=== PATIENT | female | born 1980 | race Caucasian/White ===

== ENCOUNTER 2025-02-01 10:16 | Emergency (ER) | payer BC, SELFPAY ==
[2025-02-01 10:40] VITALS: BP 138/92; PULSE 84; RESP 18; TEMP 36.9; O2SAT 99; BMI 32.9
[2025-02-01] MEDS: KETOROLAC INJ 30 MG/ML VIAL IM (11:33)
--- NOTE | 2025-02-01 12:00 | PD.EDHA ---
ED Headache RME/HPI General Chief Complaint: Headache Stated Complaint: KINSEY X 5 days, nausea Time Seen by Provider: 02/01/25 10:51 Arrival date/time: 02/01/25 10:16 Limitations: no limitations RME / HPI RME / HPI Narrative: 44-year-old patient with history of premenstrual migraines. Has had them all her life. Came into the hospital today because this 1 has not broken over the last 5 days. Usually ibuprofen will break the migraine. In the past has tried Emgality. Given Imitrex but that makes her too sleepy. Did not take 1 prior to arrival. Reports this type of migraines are familial. During interaction she began to cry and states she has got a lot on her plate and probably contributing to the severity of the migraines. Had Flexeril at home for the neck tension which she thinks triggered the headache but did not want to just be sleepy all day. No fever. No vomiting. Reports her prodrome is usually tension on her bilateral shoulders and neck prior to the headache. States she takes 0.25 Xanax but not all the time. Reports family member just and also taking care of her son who is on dialysis. States she is get a lot on her plate with her 6 other kids and full-time job. Related Data Home Medications ?Medication ?Instructions ?Recorded ?Confirmed galcanezumab-gnlm 300 mg/3 mL (100 300 mg subcut QMONTH 03/25/20 03/25/20 mg/mL x 3) subcutaneous syringe (Emgality) ibuprofen 600 mg tablet 600 mg PO Q6H PRN Migraine Headache 03/25/20 03/25/20 rimegepant 75 mg disintegrating 75 mg PO Q24H PRN Migraine Headache 03/25/20 03/25/20 tablet (Nurtec ODT) Previous Rx's ?Medication ?Instructions ?Recorded docusate sodium 100 mg capsule 100 mg PO BID #40 caps 03/27/20 hydrocodone 5 mg-acetaminophen 325 1 tab PO Q6HR PRN pain (scale 03/27/20 mg tablet score 7-10) #20 tabs methocarbamol 750 mg tablet 750 mg PO TID #20 tabs 03/29/22 naproxen 375 mg tablet 375 mg PO BID #10 tabs 03/29/22 topiramate 25 mg tablet (Topamax) 25 mg PO QDAY #30 tabs 02/01/25 Allergies Allergy/AdvReac Type Severity Reaction Status Date / Time No Known Allergies Allergy Verified 02/01/25 10:20 Review of Systems Review of Systems Systems Reviewed: All systems reviewed, normal except as documented Constitutional Constitutional: Denies fever(s) Neurologic Neurologic: Reports as per HPI ED Exam General Limitations: Present no limitations General appearance: Present alert and in no apparent distress Head Head exam: Present atraumatic Eye Eye exam: Present normal appearance, PERRL and EOMI ENT ENT exam: Present normal exam, normal oropharynx and mucous membranes moist Neck Neck exam: Present normal inspection, full ROM and trachea midline Chest Chest inspection: Present normal inspection and symmetric chest wall rise Respiratory Respiratory exam: Present normal lung sounds bilaterally Cardiovascular Cardiovascular exam: Present regular rate, normal rhythm and normal heart sounds Abdominal Exam Abdominal exam: Present soft and normal bowel sounds Extremities Exam Extremities exam: Present normal inspection and full ROM Back Exam Back exam: Present normal inspection and full ROM Neurological Exam Neurological exam: Present alert, oriented X3 and CN II-XII intact Psychiatric Psychiatric exam: Present normal affect and normal mood Skin Skin exam: Present warm, dry, intact and normal color Course Quality Measures none Orders Category Date Time Status ALPRazoLAM [Xanax] Med 02/01/25 12:01 Discontinued 0.25 mg PO X1 ONE ALPRazoLAM [Xanax] Med 02/01/25 11:16 Discontinued 1 mg PO X1 ONE Ketorolac Inj [Toradol Inj] Med 02/01/25 11:16 Discontinued 30 mg IM X1 ONE dexAMETHasone INJ [Decadron Inj] Med 02/01/25 11:16 Discontinued 10 mg PO X1 ONE Vital Signs Vital signs: Vital Signs Temperature 98.4 F 02/01/25 10:40 Pulse Rate 84 02/01/25 10:40 Respiratory Rate 18 02/01/25 10:40 Blood Pressure 138/92 H 02/01/25 10:40 Pulse Oximetry (%) 99 02/01/25 10:40 Oxygen Delivery Method Room Air 02/01/25 10:40 Headache Patient data External records reviewed:: [facility] previous records Clinical information provided by:: patient Social determinants that could affect healthcare access:: other (specify) (Works full-time job and has 6 kids reports difficult to get seen by her doctor) Patient has the following chronic illnesses:: History of migraine How is presenting disease/condition affected by chronic disease/condition?: caused by Evaluation data The following diagnostics were reviewed and interpreted by me:: other (specify) (None) Lab and/or radiology exams considered but not ordered:: Considered CT scan of brain as she was unclear when last 1 was patient declined. Interpretation Summary: No labs to interpret Medications / Prescriptions Medications or Prescriptions considered but not ordered:: Xanax for home was considered however patient already has some Medication administrations:: Medication Administration History Discontinued Medications Alprazolam (Alprazolam 0.25 Mg Tablet) 1 mg PO X1 ONE Stop: 02/01/25 11:17 Last Admin: 02/01/25 12:10 Dose: Not Given Documented By: JUSTIN Non-Admin Reason: Cancelled by Provider Alprazolam (Alprazolam 0.25 Mg Tablet) 0.25 mg PO X1 ONE Stop: 02/01/25 12:02 Last Admin: 02/01/25 12:10 Dose: 0.25 mg Documented By: JUSTIN Dexamethasone Sodium Phosphate (Dexamethasone Sod Phos Inj 10 Mg/Ml Vial) 10 mg PO X1 ONE Stop: 02/01/25 11:17 Last Admin: 02/01/25 11:32 Dose: 10 mg Documented By: JUSTIN Comments: po per order Ketorolac Tromethamine (Ketorolac Inj 30 Mg/Ml Vial) 30 mg IM X1 ONE Stop: 02/01/25 11:17 Last Admin: 02/01/25 11:33 Dose: 30 mg Documented By: JUSTIN See above Sent topiramate to take a week before her menstrual cycle Consultations Consultation(s) initiated? (list below): No Diagnosis Differential diagnosis headache: migraine, tension headache, subarachnoid hemorrhage, headache, sinusitis and postconcussion syndrome Most likely diagnosis given after review of the tests above:: Migraine Anxiety Admission Indicated Admission indicated?: not indicated Admission Request Was there a request for admission?: No Disposition Plan Disposition Plan: Discharge Discharge Attestation Discharge Attestation: The patient and all family members were given an opportunity to ask questions and understood the discharge instructions. Discharge instructions specifically effects, indications for sooner follow up or return to the emergency department, and the expected course of current diagnosis. Patient condition: Stable Discharge Plan Plan Patient Disposition: HOME (Self Care) Discharge Disposition comment: fu with pcp in 2-3days Prescriptions/Referrals Prescriptions/Med Rec: New topiramate [Topamax] 25 mg tablet 25 mg PO QDAY Qty: 30 0RF No Action ibuprofen 600 mg Tablet 600 mg PO Q6H PRN (Reason: Migraine Headache) Emgality Syringe 300 mg/3 mL (100 mg/mL x 3) Syringe 300 mg SUBCUT QMONTH Rx Instructions: every 20th of every month Nurtec ODT 75 mg Tablet,Disintegrating 75 mg PO Q24H PRN (Reason: Migraine Headache) Rx Instructions: subligual tablet hydrocodone-acetaminophen 5-325 mg Tablet 1 tab PO Q6HR MDD 4 PRN (Reason: pain (scale score 7-10)) Qty: 20 0RF docusate sodium 100 mg Capsule 100 mg PO BID Qty: 40 0RF naproxen 375 mg tablet 375 mg PO BID Qty: 10 0RF methocarbamol 750 mg tablet 750 mg PO TID Qty: 20 0RF Problem List Clinical Impression: Migraine, Anxiety Patient/Caregiver Discharge Instructions Education Materials: ED Headache, Migraine, Classic Print Language: Guatemalan Stand Alone Forms: Luna Award Info., Patient Portal Info Letter PA/REGISTERED DENTAL ASSISTANT RDA Supervising Physician PA/REGISTERED DENTAL ASSISTANT RDA Supervising Physician: Dr. nice
== END 2025-02-01 12:13 | disposition home or self-care (01) ==
LOC: SERX 12:33
PROVIDERS: Emergency Provider Emergency Medicine; PCP Internal Medicine
DX: G43.909 Migraine, unspecified, not intractable, without status migrainosus (principal); F41.9 Anxiety disorder, unspecified
CPT/HCPCS: 96372; 99282; J1100; J1885; A9270